=== PATIENT | female | born 1990 | race American Indian/Alaskan Native ===

== ENCOUNTER 2018-08-13 05:52 | Day surgery (SDC) | payer MEDICAID ==
[2018-08-12 16:53] LABS: BASOPHILS # (AUTO) 0.1 X10'3 (0-0.2); BASOPHILS % (AUTO) 0.5 % (0-1); EOSINOPHILS # (AUTO) 0.1 X10'3 (0-0.9); EOSINOPHILS % (AUTO) 1.2 % (0-6); LYMPHOCYTES # (AUTO) 2.3 X10'3 (1.1-4.8); LYMPHOCYTES % (AUTO) 21.7 % (21-51); MEAN CORPUSCULAR HEMOGLOBIN 28.6 PG (27.0-31.0); MEAN CORPUSCULAR HGB CONC 34.1 % (33.0-36.5); MEAN CORPUSCULAR VOLUME 83.9 FL (78-98); MEAN PLATELET VOLUME 7.5 FL (7.4-10.4); MONOCYTES # (AUTO) 0.6 X10'3 (0-0.9); MONOCYTES % (AUTO) 5.4 % (2-12); NEUTROPHILS # (AUTO) 7.7 X10'3 (1.8-7.7); NEUTROPHILS % (AUTO) 71.2 % (42-75); PRE OP HEMATOCRIT 42.8 % (35.0-45.0); PRE OP HEMOGLOBIN 14.6 g/dL (12.0-16.0); PRE OP PLATELET COUNT 345 X10'3 (140-440); RED CELL DISTRIBUTION WIDTH 13.1 % (11.5-14.5)
[2018-08-12 16:58] LABS: HCG SERUM QL NEGATIVE
[2018-08-12 17:04] LABS: ALBUMIN 3.9 G/DL (3.4-5.0); ALBUMIN/GLOBULIN RATIO 1.1 (1.1-1.5); ALKALINE PHOSPHATASE 93 IU/L (46-116); BLOOD UREA NITROGEN 13 MG/DL (7-18); BUN/CREATININE RATIO 14.8 (6.6-38.0); CALCIUM 9.4 MG/DL (8.5-10.1); CHLORIDE 105 MMOL/L (99-107); CREATININE 0.88 MG/DL (0.40-0.90); PRE OP ALT 30 U/L (30-65); PRE OP ANION GAP 8 (8-16); PRE OP AST 18 U/L (10-37); PRE OP BILIRUB, TOTAL 0.2 MG/DL (0.0-1.0); PRE OP GLUCOSE 81 MG/DL (70-104); PRE OP POTASSIUM 3.9 MMOL/L (3.4-5.1); PRE OP SODIUM 142 MMOL/L (135-145); TOTAL CARBON DIOXIDE 28.8 MMOL/L (24-32); TOTAL PROTEIN 7.6 G/DL (6.4-8.2); eGFR 78 ML/MIN
[2018-08-12 17:05] LABS: CLARITY,URINE CLEAR (Clear); COLOR,URINE YELLOW (Yellow); GLUCOSE, URINE NEGATIVE (Neg); KETONES,URINE NEGATIVE (Neg); LEUKOCYTE ESTERASE ,URINE NEGATIVE (Neg); NITRITES, URINE NEGATIVE (Neg); OCCULT BLOOD,URINE SMALL (Neg); PROTEIN,URINE NEGATIVE (Neg); UROBILINOGEN,URINE 0.2 E.U/dL (0.2-1.0)
[2018-08-12 17:15] LABS: UA COLLECTION TYPE CLN CATCH MIDSTREAM
[2018-08-12 17:17] LABS: MUCUS STRANDS FEW /LPF (Neg); SQUAMOUS EPITHELIAL CELL,UR MANY /LPF (FEW)
[2018-08-12 17:18] LABS: RBC,URINE 0-2 /HPF (0-2); WBC,URINE 0-4 /HPF (0-4)
[2018-08-12 17:19] LABS: BACTERIA,URINE NONE SEEN /HPF (Neg)
[~2018-08-13] VITALS: Ht 175.3 cm; Wt 163.7 kg
[2018-08-13] VITALS (9 sets, daily range): BP systolic 130–149; BP diastolic 62–98
[~2018-08-13 05:52] MED LIST: FLUT16SP10 BOTHNARES; LEVA15HF4 INH; MULT-933 PO; albuterol 2.5 MG/3 ML nebule NEB ONE; ceFAZolin inj. 3,000 MG in normal saline 100ml IV soln 100 ML IV ONE; famotidine 20mg tablet PO ONE; ringers solution, lacted 1,000 ML IV SCH
[2018-08-13] MEDS ORDERED: ALBU18HF2 INH (06:28)
[2018-08-13] MEDS ORDERED: povidone-iodine 10% topical ointment 28.4gm TP ONE (06:55)
[2018-08-13] MEDS ORDERED: BUPIVAcaine/PF 2.5mg/ml (0.25%) 10ml vial ONE (06:55)
[2018-08-13] MEDS ORDERED: methylene blue (5mg/ml) 50mg/10ml ampul IV ONE (06:55)
[2018-08-13] MEDS ORDERED: sevoflurane 250ml liquid IH ONE (08:20)
[2018-08-13] MEDS ORDERED: LIDOcaine 1%/PF 5ML 10 MG/ML VIAL ONE (08:20)
[2018-08-13] MEDS ORDERED: propofol 10mg/ml 20ml vial IV ONE (08:20)
[2018-08-13] MEDS ORDERED: glycopyrrolate 0.2mg/ml inj ONE (08:20)
[2018-08-13] MEDS ORDERED: labetalol 20mg/4ml (5mg/ml) syringe IV ONE (08:20)
[2018-08-13] MEDS ORDERED: neostigmine methylsulfate 1 MG/ML 10ml vial ONE (08:20)
[2018-08-13] MEDS ORDERED: MIDAZolam 5mg/5ml vial ONE (08:28)
[2018-08-13] MEDS ORDERED: fentaNYL/PF 50MCG/1 ML 2ML syringe ONE (08:28)
[2018-08-13] MEDS ORDERED: propofol inj 20 ML IV ONE (08:28)
[2018-08-13] MEDS ORDERED: rocuronium 10mg/ml inj IV ONE (08:29)
[2018-08-13] MEDS ORDERED: ondansetron/PF 4mg/2ml inj ONE (08:53)
[2018-08-13] MEDS ORDERED: albuterol 60 PUFF/8GM Inhaler IH ONE (08:55)
[2018-08-13] MEDS ORDERED: ketorolac trometh. 30mg/ml inj. ONE (08:55)
[2018-08-13] MEDS ORDERED: ringers solution, lacted 1,000 ML IV SCH (09:07)
[2018-08-13] MEDS ORDERED: meperidine/PF 25mg/ml syringe IV PRN ×3 (09:10)
[2018-08-13] MEDS ORDERED: morphine 4 MG/ML inj SYRINge IV PRN ×2 (09:10)
[2018-08-13] MEDS ORDERED: ondansetron/PF 4mg/2ml inj IV PRN (09:10)
[2018-08-13] MEDS ORDERED: proCHLORperazine 10 MG/2 ml inj IV PRN (09:10)
[2018-08-13] MEDS ORDERED: HYDROcodone/acetaminophen 10/325mg tab PO ONE (10:40)
[2018-08-13] MEDS ORDERED: acetaminophen 1,000mg/100ml IV 100 ML IV SCH (14:00)
== END 2018-08-13 11:00 | disposition home or self-care (01) ==
LOC: PAS 05:52
PROVIDERS: ATTEND Surgery
DX: L05.91 Pilonidal cyst without abscess (principal); F17.210 Nicotine dependence, cigarettes, uncomplicated; J45.998 Other asthma; E66.01 Morbid (severe) obesity due to excess calories; Z68.43 Body mass index [BMI] 50.0-59.9, adult; Z87.11 Personal history of peptic ulcer disease; Z87.442 Personal history of urinary calculi; Z90.49 Acquired absence of other specified parts of digestive tract; Z98.890 Other specified postprocedural states; Z79.899 Other long term (current) drug therapy; Z88.8 Allergy status to other drugs, medicaments and biological substances
CPT/HCPCS: 11771; 36415; 80053; 81001; 84703; 85025; A6266; A6449; J0690; J2001; J2250; J2405; J2704; J2710; J3010; J3490; J7030; J7120; A7000; J1885

== ENCOUNTER 2018-08-16 09:30 | Outpatient (CLI) | payer MEDICAID ==
[~2018-08-16 09:30] MED LIST changes: +ALBU18HF2 INH; -LEVA15HF4 INH; -albuterol 2.5 MG/3 ML nebule NEB ONE; -ceFAZolin inj. 3,000 MG in normal saline 100ml IV soln 100 ML IV ONE; -famotidine 20mg tablet PO ONE; -ringers solution, lacted 1,000 ML IV SCH
[2018-08-16] MEDS ORDERED: LIDOcaine/PRILOcaine 5gm cream TP ONE (10:59)
[2018-08-16] MEDS ORDERED: HYDR-569 PO (15:43)
== END 2018-08-16 11:30 | disposition home or self-care (01) ==
LOC: EDSTATUS 09:30 → WOUND CARE 09:30
PROVIDERS: ATTEND Surgery
DX: T81.89XD Other complications of procedures, not elsewhere classified, subsequent encounter (principal); L98.492 Non-pressure chronic ulcer of skin of other sites with fat layer exposed; E66.01 Morbid (severe) obesity due to excess calories; J45.998 Other asthma; F17.210 Nicotine dependence, cigarettes, uncomplicated; F12.10 Cannabis abuse, uncomplicated; Z90.49 Acquired absence of other specified parts of digestive tract; Z68.43 Body mass index [BMI] 50.0-59.9, adult; Z87.442 Personal history of urinary calculi; Z79.899 Other long term (current) drug therapy
CPT/HCPCS: 99214; A6266

== ENCOUNTER 2018-08-20 08:54 | Outpatient (CLI) | payer MEDICAID ==
[~2018-08-20 08:54] MED LIST changes: +HYDR-4383 PO
== END 2018-08-20 10:45 | disposition home or self-care (01) ==
LOC: WOUND CARE 08:54 → EDSTATUS 09:00 → WOUND CARE 10:45
PROVIDERS: ATTEND Surgery
DX: T81.89XD Other complications of procedures, not elsewhere classified, subsequent encounter (principal); L98.492 Non-pressure chronic ulcer of skin of other sites with fat layer exposed; E66.01 Morbid (severe) obesity due to excess calories; J45.998 Other asthma; F17.210 Nicotine dependence, cigarettes, uncomplicated; F12.10 Cannabis abuse, uncomplicated; Z90.49 Acquired absence of other specified parts of digestive tract; Z68.43 Body mass index [BMI] 50.0-59.9, adult; Z87.442 Personal history of urinary calculi; Z79.899 Other long term (current) drug therapy
CPT/HCPCS: 99215; A6266

== ENCOUNTER 2018-08-23 08:26 | Outpatient (CLI) | payer MEDICAID ==
[2018-08-23] MEDS ORDERED: LIDOcaine/PRILOcaine 5gm cream TP ONE (09:28)
== END 2018-08-23 09:50 | disposition home or self-care (01) ==
LOC: WOUND CARE 08:26 → EDSTATUS 08:30 → WOUND CARE 09:50
PROVIDERS: ATTEND Surgery
DX: T81.89XD Other complications of procedures, not elsewhere classified, subsequent encounter (principal); L98.492 Non-pressure chronic ulcer of skin of other sites with fat layer exposed; E66.01 Morbid (severe) obesity due to excess calories; J45.998 Other asthma; F17.210 Nicotine dependence, cigarettes, uncomplicated; F12.10 Cannabis abuse, uncomplicated; Z90.49 Acquired absence of other specified parts of digestive tract; Z68.43 Body mass index [BMI] 50.0-59.9, adult; Z87.442 Personal history of urinary calculi; Z79.899 Other long term (current) drug therapy
CPT/HCPCS: 99211; A6266

== ENCOUNTER 2018-08-27 08:00 | Outpatient (CLI) | payer MEDICAID ==
[2018-08-27] MEDS ORDERED: LIDOcaine/PRILOcaine 5gm cream TP ONE (08:53)
== END 2018-08-27 10:22 | disposition home or self-care (01) ==
LOC: WOUND CARE 08:00 → EDSTATUS 08:30 → WOUND CARE 10:22
PROVIDERS: ATTEND Surgery
DX: T81.89XD Other complications of procedures, not elsewhere classified, subsequent encounter (principal); L98.492 Non-pressure chronic ulcer of skin of other sites with fat layer exposed; E66.01 Morbid (severe) obesity due to excess calories; J45.998 Other asthma; F17.210 Nicotine dependence, cigarettes, uncomplicated; F12.10 Cannabis abuse, uncomplicated; Z90.49 Acquired absence of other specified parts of digestive tract; Z68.43 Body mass index [BMI] 50.0-59.9, adult; Z87.442 Personal history of urinary calculi; Z79.899 Other long term (current) drug therapy
CPT/HCPCS: 17250; A6266

== ENCOUNTER 2018-08-30 08:24 | Outpatient (CLI) | payer MEDICAID ==
[2018-08-30] MEDS ORDERED: LIDOcaine/PRILOcaine 5gm cream TP ONE (08:44)
== END 2018-08-30 09:07 | disposition home or self-care (01) ==
LOC: WOUND CARE 08:24 → EDSTATUS 08:30 → WOUND CARE 09:07
PROVIDERS: ATTEND Surgery
DX: T81.89XD Other complications of procedures, not elsewhere classified, subsequent encounter (principal); L98.492 Non-pressure chronic ulcer of skin of other sites with fat layer exposed; E66.01 Morbid (severe) obesity due to excess calories; J45.998 Other asthma; F17.210 Nicotine dependence, cigarettes, uncomplicated; F12.10 Cannabis abuse, uncomplicated; Z90.49 Acquired absence of other specified parts of digestive tract; Z68.43 Body mass index [BMI] 50.0-59.9, adult; Z87.442 Personal history of urinary calculi; Z79.899 Other long term (current) drug therapy
CPT/HCPCS: 99211; A6266

== ENCOUNTER 2018-09-03 08:33 | Day surgery (SDC) | payer MEDICAID ==
[2018-09-03] MEDS ORDERED: NYST30CR2 TP (12:40)
== END 2018-09-03 10:47 | disposition home or self-care (01) ==
LOC: WOUND CARE 08:33
PROVIDERS: ATTEND Surgery
DX: T81.89XD Other complications of procedures, not elsewhere classified, subsequent encounter (principal); L98.492 Non-pressure chronic ulcer of skin of other sites with fat layer exposed; E66.01 Morbid (severe) obesity due to excess calories; J45.998 Other asthma; F17.210 Nicotine dependence, cigarettes, uncomplicated; F12.10 Cannabis abuse, uncomplicated; Z90.49 Acquired absence of other specified parts of digestive tract; Z68.43 Body mass index [BMI] 50.0-59.9, adult; Z87.442 Personal history of urinary calculi; Z79.899 Other long term (current) drug therapy; Y83.8 Other surgical procedures as the cause of abnormal reaction of the patient, or of later complication, without mention of misadventure at the time of the procedure
CPT/HCPCS: 97597; A6266

== ENCOUNTER 2018-09-06 08:34 | Outpatient (CLI) | payer MEDICAID ==
[~2018-09-06 08:34] MED LIST changes: +NYST30CR2 TP
[2018-09-06] MEDS ORDERED: LIDOcaine/PRILOcaine 5gm cream TP ONE (08:59)
== END 2018-09-06 09:15 | disposition home or self-care (01) ==
LOC: WOUND CARE 08:34
PROVIDERS: ATTEND Surgery
DX: T81.89XD Other complications of procedures, not elsewhere classified, subsequent encounter (principal); L98.492 Non-pressure chronic ulcer of skin of other sites with fat layer exposed; E66.01 Morbid (severe) obesity due to excess calories; J45.998 Other asthma; F17.210 Nicotine dependence, cigarettes, uncomplicated; F12.10 Cannabis abuse, uncomplicated; Z90.49 Acquired absence of other specified parts of digestive tract; Z68.43 Body mass index [BMI] 50.0-59.9, adult; Z87.442 Personal history of urinary calculi; Z79.899 Other long term (current) drug therapy; Y83.8 Other surgical procedures as the cause of abnormal reaction of the patient, or of later complication, without mention of misadventure at the time of the procedure
CPT/HCPCS: 99211; A6266; 99215

== ENCOUNTER 2018-09-10 08:35 | Day surgery (SDC) | payer MEDICAID | END 2018-09-10 10:40 | disposition home or self-care (01) | LOC: WOUND CARE 08:35 | PROVIDERS: ATTEND Surgery | DX: T81.89XD Other complications of procedures, not elsewhere classified, subsequent encounter (principal); L98.492 Non-pressure chronic ulcer of skin of other sites with fat layer exposed; E66.01 Morbid (severe) obesity due to excess calories; J45.998 Other asthma; F17.210 Nicotine dependence, cigarettes, uncomplicated; F12.10 Cannabis abuse, uncomplicated; Z90.49 Acquired absence of other specified parts of digestive tract; Z68.43 Body mass index [BMI] 50.0-59.9, adult; Z87.442 Personal history of urinary calculi; Z79.899 Other long term (current) drug therapy; Y83.8 Other surgical procedures as the cause of abnormal reaction of the patient, or of later complication, without mention of misadventure at the time of the procedure | CPT/HCPCS: 17250; A6266 ==

== ENCOUNTER 2018-09-13 08:20 | Outpatient (CLI) | payer MEDICAID ==
[2018-09-13] MEDS ORDERED: LIDOcaine/PRILOcaine 5gm cream TP ONE (08:57)
== END 2018-09-13 09:12 | disposition home or self-care (01) ==
LOC: WOUND CARE 08:20 → EDSTATUS 08:30 → WOUND CARE 09:12
PROVIDERS: ATTEND Surgery
DX: T81.89XD Other complications of procedures, not elsewhere classified, subsequent encounter (principal); L98.492 Non-pressure chronic ulcer of skin of other sites with fat layer exposed; E66.01 Morbid (severe) obesity due to excess calories; J45.998 Other asthma; F17.210 Nicotine dependence, cigarettes, uncomplicated; F12.10 Cannabis abuse, uncomplicated; Z90.49 Acquired absence of other specified parts of digestive tract; Z68.43 Body mass index [BMI] 50.0-59.9, adult; Z87.442 Personal history of urinary calculi; Z79.899 Other long term (current) drug therapy; Y83.8 Other surgical procedures as the cause of abnormal reaction of the patient, or of later complication, without mention of misadventure at the time of the procedure
CPT/HCPCS: 99211; A6266

== ENCOUNTER 2018-09-18 08:35 | Day surgery (SDC) | payer MEDICAID | END 2018-09-18 10:25 | disposition home or self-care (01) | LOC: WOUND CARE 08:35 | PROVIDERS: ATTEND Surgery | DX: T81.89XD Other complications of procedures, not elsewhere classified, subsequent encounter (principal); L98.492 Non-pressure chronic ulcer of skin of other sites with fat layer exposed; E66.01 Morbid (severe) obesity due to excess calories; J45.998 Other asthma; F17.210 Nicotine dependence, cigarettes, uncomplicated; F12.10 Cannabis abuse, uncomplicated; Z90.49 Acquired absence of other specified parts of digestive tract; Z68.43 Body mass index [BMI] 50.0-59.9, adult; Z87.442 Personal history of urinary calculi; Z79.899 Other long term (current) drug therapy; Y83.8 Other surgical procedures as the cause of abnormal reaction of the patient, or of later complication, without mention of misadventure at the time of the procedure | CPT/HCPCS: 17250; A6266 ==

== ENCOUNTER 2018-09-20 08:26 | Outpatient (CLI) | payer MEDICAID ==
[2018-09-20] MEDS ORDERED: LIDOcaine/PRILOcaine 5gm cream TP ONE (08:47)
== END 2018-09-20 09:05 | disposition home or self-care (01) ==
LOC: WOUND CARE 08:26 → EDSTATUS 08:30 → WOUND CARE 09:05
PROVIDERS: ATTEND Surgery
DX: T81.89XD Other complications of procedures, not elsewhere classified, subsequent encounter (principal); L98.492 Non-pressure chronic ulcer of skin of other sites with fat layer exposed; E66.01 Morbid (severe) obesity due to excess calories; J45.998 Other asthma; F17.210 Nicotine dependence, cigarettes, uncomplicated; F12.10 Cannabis abuse, uncomplicated; Z90.49 Acquired absence of other specified parts of digestive tract; Z68.43 Body mass index [BMI] 50.0-59.9, adult; Z87.442 Personal history of urinary calculi; Z79.899 Other long term (current) drug therapy; Y83.8 Other surgical procedures as the cause of abnormal reaction of the patient, or of later complication, without mention of misadventure at the time of the procedure
CPT/HCPCS: 99211; A6266

== ENCOUNTER 2018-09-24 08:29 | Day surgery (SDC) | payer MEDICAID ==
[2018-09-24] MEDS ORDERED: LIDOcaine/PRILOcaine 5gm cream TP ONE (10:03)
== END 2018-09-24 10:23 | disposition home or self-care (01) ==
LOC: WOUND CARE 08:29
PROVIDERS: ATTEND Surgery
DX: T81.89XD Other complications of procedures, not elsewhere classified, subsequent encounter (principal); L98.492 Non-pressure chronic ulcer of skin of other sites with fat layer exposed; E66.01 Morbid (severe) obesity due to excess calories; J45.998 Other asthma; F17.210 Nicotine dependence, cigarettes, uncomplicated; F12.10 Cannabis abuse, uncomplicated; Z90.49 Acquired absence of other specified parts of digestive tract; Z68.43 Body mass index [BMI] 50.0-59.9, adult; Z87.442 Personal history of urinary calculi; Z79.899 Other long term (current) drug therapy; Y83.8 Other surgical procedures as the cause of abnormal reaction of the patient, or of later complication, without mention of misadventure at the time of the procedure
CPT/HCPCS: 17250; A6021

== ENCOUNTER 2018-09-27 08:31 | Outpatient (CLI) | payer MEDICAID | END 2018-09-27 09:20 | disposition home or self-care (01) | LOC: WOUND CARE 08:31 | PROVIDERS: ATTEND Surgery | DX: T81.89XD Other complications of procedures, not elsewhere classified, subsequent encounter (principal); L98.492 Non-pressure chronic ulcer of skin of other sites with fat layer exposed; E66.01 Morbid (severe) obesity due to excess calories; J45.998 Other asthma; F17.210 Nicotine dependence, cigarettes, uncomplicated; F12.10 Cannabis abuse, uncomplicated; Z90.49 Acquired absence of other specified parts of digestive tract; Z68.43 Body mass index [BMI] 50.0-59.9, adult; Z87.442 Personal history of urinary calculi; Z79.899 Other long term (current) drug therapy; Y83.8 Other surgical procedures as the cause of abnormal reaction of the patient, or of later complication, without mention of misadventure at the time of the procedure | CPT/HCPCS: 99211; A6021 ==

== ENCOUNTER 2018-10-01 08:30 | Day surgery (SDC) | payer MEDICAID | END 2018-10-01 10:14 | disposition home or self-care (01) | LOC: WOUND CARE 08:30 | PROVIDERS: ATTEND Surgery | DX: T81.89XD Other complications of procedures, not elsewhere classified, subsequent encounter (principal); L98.492 Non-pressure chronic ulcer of skin of other sites with fat layer exposed; E66.01 Morbid (severe) obesity due to excess calories; J45.998 Other asthma; F17.210 Nicotine dependence, cigarettes, uncomplicated; F12.10 Cannabis abuse, uncomplicated; Z90.49 Acquired absence of other specified parts of digestive tract; Z68.43 Body mass index [BMI] 50.0-59.9, adult; Z87.442 Personal history of urinary calculi; Z79.899 Other long term (current) drug therapy; Y83.8 Other surgical procedures as the cause of abnormal reaction of the patient, or of later complication, without mention of misadventure at the time of the procedure | CPT/HCPCS: 17250; A6021 ==

== ENCOUNTER 2018-10-18 08:29 | Day surgery (SDC) | payer MEDICAID | END 2018-10-18 09:58 | disposition home or self-care (01) | LOC: WOUND CARE 08:29 | PROVIDERS: ATTEND Surgery | DX: T81.89XD Other complications of procedures, not elsewhere classified, subsequent encounter (principal); L98.492 Non-pressure chronic ulcer of skin of other sites with fat layer exposed; E66.01 Morbid (severe) obesity due to excess calories; J45.998 Other asthma; F17.210 Nicotine dependence, cigarettes, uncomplicated; F12.10 Cannabis abuse, uncomplicated; Z90.49 Acquired absence of other specified parts of digestive tract; Z68.43 Body mass index [BMI] 50.0-59.9, adult; Z87.442 Personal history of urinary calculi; Z79.899 Other long term (current) drug therapy; Y83.8 Other surgical procedures as the cause of abnormal reaction of the patient, or of later complication, without mention of misadventure at the time of the procedure | CPT/HCPCS: 17250; 97597; A6021 ==

== ENCOUNTER 2018-10-25 08:25 | Day surgery (SDC) | payer MEDICAID | END 2018-10-25 09:41 | disposition home or self-care (01) | LOC: WOUND CARE 08:25 | PROVIDERS: ATTEND Surgery | DX: T81.89XD Other complications of procedures, not elsewhere classified, subsequent encounter (principal); L98.492 Non-pressure chronic ulcer of skin of other sites with fat layer exposed; E66.01 Morbid (severe) obesity due to excess calories; J45.998 Other asthma; F17.210 Nicotine dependence, cigarettes, uncomplicated; F12.10 Cannabis abuse, uncomplicated; Z90.49 Acquired absence of other specified parts of digestive tract; Z68.43 Body mass index [BMI] 50.0-59.9, adult; Z87.442 Personal history of urinary calculi; Z79.899 Other long term (current) drug therapy; Y83.8 Other surgical procedures as the cause of abnormal reaction of the patient, or of later complication, without mention of misadventure at the time of the procedure | CPT/HCPCS: 17250; 97597 ==

== ENCOUNTER 2018-12-04 08:54 | Day surgery (SDC) | payer MEDICAID ==
--- NOTE | 2018-12-04 10:15 | NUR ---
Patient ambulated independently from [facility] accompanied by her mother and was admitted to outpatient wound care for physician visit with Joel Talbert MD. Dressing removed, wound cleansed and lidocaine applied per order. Patient assessed for changes in conditions, medications and medical history. 1005 - Dr. Talbert at bedside accompanied by RN. Wound assessed, time out performed by MD/RN. Wound debrided as detailed in the physician progress/procedure note. Plan of care discussed with patient. Dressings placed per MD orders. Patient instructed on the signs and symptoms of infection and to call the [facility] if any occur or to go to the ED if we are closed: Increased pain in wound Increase in drainage from the wound Redness in the skin surrounding the wound Bleeding from the wound Temperature of 101 or greater Patient instructed that the weight of their body puts a large amount of pressure on their wounds. This pressure keeps the new tissue from growing and inhibits new blood vessels from forming. Explained that, if they continue to bear weight on a body part that has a wound, the time it takes to heal the wound increases, the wound may get worse or the wound may not heal at all. Patient verbalized understanding of all discharge instructions and plan of care and ambulated independently out to [facility] accompanied by her mother and is in stable condition with no sign or symptom of distress at time of discharge.
== END 2018-12-04 10:11 | disposition home or self-care (01) ==
LOC: WOUND CARE 08:54
PROVIDERS: ATTEND Surgery
DX: T81.89XD Other complications of procedures, not elsewhere classified, subsequent encounter (principal); L98.492 Non-pressure chronic ulcer of skin of other sites with fat layer exposed; E66.01 Morbid (severe) obesity due to excess calories; J45.998 Other asthma; F17.210 Nicotine dependence, cigarettes, uncomplicated; F12.10 Cannabis abuse, uncomplicated; Z90.49 Acquired absence of other specified parts of digestive tract; Z68.43 Body mass index [BMI] 50.0-59.9, adult; Z87.442 Personal history of urinary calculi; Z79.899 Other long term (current) drug therapy; Y83.8 Other surgical procedures as the cause of abnormal reaction of the patient, or of later complication, without mention of misadventure at the time of the procedure
CPT/HCPCS: 17250; 97597; A6021

== ENCOUNTER 2019-08-11 18:06 | Emergency (ER) | payer MEDICAID ==
[~2019-08-11] VITALS: Ht 175.3 cm; Wt 168.2 kg
[2019-08-11 18:36] LABS: BASOPHILS # (AUTO) 0.1 X10'3 (0-0.2); BASOPHILS % (AUTO) 0.9 % (0-1); EOSINOPHILS # (AUTO) 0.1 X10'3 (0-0.9); EOSINOPHILS % (AUTO) 1.1 % (0-6); HEMATOCRIT 41.6 % (35.0-45.0); HEMOGLOBIN 13.8 g/dl (12.0-16.0); LYMPHOCYTES # (AUTO) 2.8 X10'3 (1.1-4.8); LYMPHOCYTES % (AUTO) 23.9 % (21-51); MEAN CORPUSCULAR HEMOGLOBIN 27.9 PG (27.0-31.0); MEAN CORPUSCULAR HGB CONC 33.2 g/dL (33.0-36.5); MEAN CORPUSCULAR VOLUME 83.9 FL (78-98); MEAN PLATELET VOLUME 7.2 FL (7.4-10.4); MONOCYTES # (AUTO) 0.8 X10'3 (0-0.9); NEUTROPHILS # (AUTO) 7.9 X10'3 (1.8-7.7); NEUTROPHILS % (AUTO) 67.1 % (42-75); PLATELET COUNT 358 X10'3 (140-440); RED BLOOD COUNT 4.96 X10'6 (4.20-5.60); RED CELL DISTRIBUTION WIDTH 14.2 % (11.5-14.5); WHITE BLOOD COUNT 11.9 X10'3 (4.5-11.0)
[2019-08-11] MEDS ORDERED: HYDROcodone/acetaminophen 5mg/325mg tablet PO ONE (18:40)
[2019-08-11 18:48] LABS: PARTIAL THROMBOPLASTIN TIME 29 SECONDS (22-32)
[2019-08-11 18:52] LABS: ALANINE AMINOTRANSFERASE 33 U/L (12-78); ALBUMIN 3.8 G/DL (3.4-5.0); ALKALINE PHOSPHATASE 95 IU/L (46-116); ANION GAP 9 (8-16); ASPARTATE AMINO TRANSFERASE 19 U/L (10-37); BILIRUBIN,TOTAL 0.2 MG/DL (0.1-1.0); BLOOD UREA NITROGEN 12 MG/DL (7-18); BUN/CREATININE RATIO 11.3 (6.6-38.0); CALCIUM 9.4 MG/DL (8.5-10.1); CHLORIDE 105 MMOL/L (99-107); CREATININE 1.06 MG/DL (0.40-0.90); GLUCOSE 94 MG/DL (70-104); POTASSIUM 3.8 MMOL/L (3.5-5.1); SODIUM 142 MMOL/L (135-145); TOTAL CARBON DIOXIDE 27.9 MMOL/L (24-32); TOTAL PROTEIN 7.8 G/DL (6.4-8.2); eGFR 62 ML/MIN
[2019-08-11 18:56] LABS: D-DIMER < 0.19 MG/L FEU (0-0.50)
[2019-08-11 19:56] VITALS: BP 140/78
== END 2019-08-11 20:14 | disposition home or self-care (01) ==
LOC: ER 18:07
DX: R07.81 Pleurodynia (principal); R61 Generalized hyperhidrosis; R06.02 Shortness of breath; F17.200 Nicotine dependence, unspecified, uncomplicated; Z87.442 Personal history of urinary calculi; Z90.89 Acquired absence of other organs; Z56.0 Unemployment, unspecified; Z88.8 Allergy status to other drugs, medicaments and biological substances; Z79.899 Other long term (current) drug therapy
CPT/HCPCS: 36415; 71045; 80053; 84484; 85025; 85379; 85610; 85730; 93005; 99284

== ENCOUNTER 2019-10-21 15:30 | Inpatient (IN) | payer MEDICAID ==
[~2019-10-21] VITALS: Ht 175.3 cm; Wt 159.1 kg
[2019-10-21 16:12] LABS: BASOPHILS # (AUTO) 0.1 X10'3 (0-0.2); BASOPHILS % (AUTO) 0.5 % (0-1); EOSINOPHILS % (AUTO) 0.2 % (0-6); HEMOGLOBIN 13.4 g/dl (12.0-16.0); LYMPHOCYTES % (AUTO) 7.9 % (21-51); MEAN CORPUSCULAR HGB CONC 33.6 g/dL (33.0-36.5); MEAN CORPUSCULAR VOLUME 83.5 FL (78-98); MEAN PLATELET VOLUME 7.7 FL (7.4-10.4); MONOCYTES # (AUTO) 1.1 X10'3 (0-0.9); MONOCYTES % (AUTO) 8.9 % (2-12); NEUTROPHILS # (AUTO) 10.7 X10'3 (1.8-7.7); NEUTROPHILS % (AUTO) 82.5 % (42-75); PLATELET COUNT 211 X10'3 (140-440); RED BLOOD COUNT 4.79 X10'6 (4.20-5.60); RED CELL DISTRIBUTION WIDTH 15.7 % (11.5-14.5); WHITE BLOOD COUNT 12.9 X10'3 (4.5-11.0)
[2019-10-21 16:20] LABS: ALANINE AMINOTRANSFERASE 40 U/L (12-78); ALBUMIN 3.4 G/DL (3.4-5.0); ALBUMIN/GLOBULIN RATIO 0.7 (1.1-1.5); ALKALINE PHOSPHATASE 94 IU/L (46-116); ANION GAP 12 (8-16); ASPARTATE AMINO TRANSFERASE 33 U/L (10-37); BLOOD UREA NITROGEN 9 MG/DL (7-18); BUN/CREATININE RATIO 8.2 (6.6-38.0); CALCIUM 9.1 MG/DL (8.5-10.1); CHLORIDE 101 MMOL/L (99-107); GLUCOSE 102 MG/DL (70-104); LIPASE < 50 U/L (73-393); POTASSIUM 3.4 MMOL/L (3.5-5.1); SODIUM 138 MMOL/L (135-145); TOTAL CARBON DIOXIDE 25.4 MMOL/L (24-32); eGFR 60 ML/MIN
[2019-10-21] MEDS ORDERED: normal saline 1000ML IV soln IVB ONE (16:25)
[2019-10-21] MEDS ORDERED: acetaminophen 325mg tablet PO ONE (16:25)
[2019-10-21] MEDS ORDERED: ondansetron 4mg rapidly disintigrating tab PO ONE (16:25)
[2019-10-21 16:37] LABS: PLATELET ESTIMATE NORMAL; TOTAL CELLS COUNTED 100
[2019-10-21 16:38] LABS: ANISOCYTOSIS FEW; TOXIC GRANULATION 1+; TOXIC VACUOLATION FEW
[2019-10-21 17:23] LABS: HIV ANTIBODY 1&2 RAPID NON-REACTIVE (Neg)
[2019-10-21 17:32] LABS: URINE HCG NEGATIVE (NEG)
[2019-10-21 17:33] LABS: CLARITY,URINE CLOUDY (Clear); COLOR,URINE YELLOW (Yellow); GLUCOSE, URINE NEGATIVE (Neg); KETONES,URINE 40 mg/dl (Neg); LEUKOCYTE ESTERASE ,URINE LARGE (Neg); NITRITES, URINE POSITIVE (Neg); OCCULT BLOOD,URINE LARGE (Neg); PROTEIN,URINE 100 mg/dl (Neg)
[2019-10-21 17:34] LABS: UA COLLECTION TYPE CLN CATCH MIDSTREAM
[2019-10-21] MEDS ORDERED: CefTRIAXone/D5W-Rocephin 1gm 50 ML IV ONE (17:55)
[2019-10-21 18:06] LABS: SQUAMOUS EPITHELIAL CELL,UR MODERATE /LPF (FEW)
[2019-10-21 18:07] LABS: HYALINE CASTS 0-3 /LPF (NEGATIVE)
[2019-10-21 18:09] LABS: BACTERIA,URINE 4+ /HPF (Neg); WBC,URINE 50-100 /HPF (0-4)
[2019-10-21 18:11] LABS: MUCUS STRANDS FEW /LPF (Neg); TRANSITIONAL EPI CELLS,URINE FEW /HPF
[2019-10-21 18:12] LABS: RENAL CELLS, URINE FEW /HPF
[2019-10-21 18:14] LABS: RBC,URINE 50-100 /HPF (0-2)
[2019-10-21] MEDS ORDERED: VARE0.5T PO (18:41)
[2019-10-21] MEDS ORDERED: KEN0.1O TP (18:41)
[2019-10-21] MEDS ORDERED: ondansetron/PF 4mg/2ml inj IV PRN (20:40)
[2019-10-21] MEDS ORDERED: mag hydrox/Alum hydrox/simeth 30ml oral suspension PO PRN (20:40)
[2019-10-21] MEDS ORDERED: magnesium hydroxide 30ml (MOM) UD suspension PO PRN (20:40)
[2019-10-21] MEDS ORDERED: albuterol 2.5 MG/3 ML nebule NEB PRN (20:45)
[2019-10-21] MEDS: acetaminophen 325mg tablet PO PRN (21:02)
--- NOTE | 2019-10-21 21:03 | NUR ---
Received patient report from Shae LOZA. Will assume care.
--- NOTE | 2019-10-21 21:12 | NUR ---
received from er via w/c. pt alert and oriented. oriented to room and routine. Addendum: 10/21/19 at 2127 by Bandar Garcia RN Amended: Links added.
[2019-10-21 21:30] VITALS: BP 143/77
[2019-10-21] MEDS: normal saline 1000ml 1,000 ML IV SCH (21:39)
[2019-10-21] MEDS: HYDROcodone/acetaminophen 5mg/325mg tablet PO PRN (22:29)
[2019-10-22] VITALS: BP 119/64
--- NOTE | 2019-10-22 03:00 | NUR ---
Patient's flu came back negative. Patient removed from isolation.
[2019-10-22] MEDS: normal saline 1000ml 1,000 ML IV SCH ×2 (05:11→17:27)
--- NOTE | 2019-10-22 06:30 | NUR ---
Patient in room [facility]. I have received report from Marcelle LOZA and had the opportunity to ask questions and assume patient care.
--- NOTE | 2019-10-22 06:41 | NUR ---
Problems reprioritized. Patient report given, questions answered & plan of care reviewed with Garrison RN.
[2019-10-22 07:00] VITALS: BP 144/99
[2019-10-22 07:28] LABS: BASOPHILS % (AUTO) 0.4 % (0-1); EOSINOPHILS % (AUTO) 0.2 % (0-6); HEMATOCRIT 35.7 % (35.0-45.0); HEMOGLOBIN 11.7 g/dl (12.0-16.0); LYMPHOCYTES # (AUTO) 1.1 X10'3 (1.1-4.8); LYMPHOCYTES % (AUTO) 10.8 % (21-51); MEAN CORPUSCULAR HEMOGLOBIN 27.8 PG (27.0-31.0); MEAN CORPUSCULAR HGB CONC 32.9 g/dL (33.0-36.5); MEAN CORPUSCULAR VOLUME 84.4 FL (78-98); MEAN PLATELET VOLUME 7.7 FL (7.4-10.4); MONOCYTES # (AUTO) 1.1 X10'3 (0-0.9); MONOCYTES % (AUTO) 10.8 % (2-12); NEUTROPHILS # (AUTO) 7.9 X10'3 (1.8-7.7); NEUTROPHILS % (AUTO) 77.8 % (42-75); PLATELET COUNT 182 X10'3 (140-440); RED BLOOD COUNT 4.22 X10'6 (4.20-5.60); RED CELL DISTRIBUTION WIDTH 15.7 % (11.5-14.5); WHITE BLOOD COUNT 10.1 X10'3 (4.5-11.0)
[2019-10-22 07:46] LABS: ALANINE AMINOTRANSFERASE 38 U/L (12-78); ALBUMIN 2.7 G/DL (3.4-5.0); ALBUMIN/GLOBULIN RATIO 0.7 (1.1-1.5); ALKALINE PHOSPHATASE 87 IU/L (46-116); ANION GAP 12 (8-16); ASPARTATE AMINO TRANSFERASE 27 U/L (10-37); BILIRUBIN,TOTAL 0.7 MG/DL (0.1-1.0); BLOOD UREA NITROGEN 7 MG/DL (7-18); BUN/CREATININE RATIO 7.7 (6.6-38.0); CALCIUM 8.2 MG/DL (8.5-10.1); CHLORIDE 104 MMOL/L (99-107); CREATININE 0.91 MG/DL (0.40-0.90); GLUCOSE 83 MG/DL (70-104); POTASSIUM 3.6 MMOL/L (3.5-5.1); SODIUM 139 MMOL/L (135-145); TOTAL CARBON DIOXIDE 23.4 MMOL/L (24-32); TOTAL PROTEIN 6.7 G/DL (6.4-8.2); eGFR 74 ML/MIN
[2019-10-22] MEDS: CefTRIAXone/D5W-Rocephin 1gm 50 ML IV SCH (07:50)
[2019-10-22] MEDS: heparin, porcine 5000 units/ml vial SQ SCH ×2 (07:54→19:48)
[2019-10-22] MEDS: HYDROcodone/acetaminophen 5mg/325mg tablet PO PRN ×2 (08:22→19:48)
[2019-10-22] MEDS ORDERED: pneumococcal 23-VAL P-sac vacc 25 mcg/0.5ml vial IMVAC ONE (10:00)
[2019-10-22] MEDS ORDERED: FLU VACC QS2019-20 36MOS UP/PF 60 MCG/0.5 ML SYRINGE IMVAC ONE (10:00)
[2019-10-22 11:00] VITALS: BP 168/84
--- NOTE | 2019-10-22 13:18 | NUR ---
Student Medication Administration: For this medication-pass time frame, all medication were reviewed, dispensed, administered and documented per hospital policy by Rich Student Nurse.
--- NOTE | 2019-10-22 13:18 | NUR ---
Student Medication Administration: For this medication-pass time frame, all medication were reviewed, dispensed, administered and documented per hospital policy by Lima Student Nurse.
--- NOTE | 2019-10-22 18:30 | NUR ---
Patient in room [facility]. I have received report from Garrison LOZA and had the opportunity to ask questions and assume patient care.
--- NOTE | 2019-10-22 18:30 | NUR ---
Problems reprioritized. Patient report given, questions answered & plan of care reviewed with Marcelle LOZA.
[2019-10-22] MEDS: lactobacillus rhamnosus 10,000 MMU CELLS/CAPSULE PO SCH (19:48)
[2019-10-22 20:00] VITALS: BP 94/50
[2019-10-22] MEDS: nicotine 14mg patch - 24hr TD SCH (21:41)
[2019-10-22 23:54] VITALS: BP 135/76
[2019-10-23] MEDS: normal saline 1000ml 1,000 ML IV SCH ×2 (02:38→16:29)
[2019-10-23] MEDS: acetaminophen 325mg tablet PO PRN (03:42)
[2019-10-23 05:10] LABS: BASOPHILS % (AUTO) 0.3 % (0-1); EOSINOPHILS % (AUTO) 0.6 % (0-6); HEMATOCRIT 34.9 % (35.0-45.0); HEMOGLOBIN 11.4 g/dl (12.0-16.0); LYMPHOCYTES % (AUTO) 13.6 % (21-51); MEAN CORPUSCULAR HEMOGLOBIN 27.6 PG (27.0-31.0); MEAN CORPUSCULAR HGB CONC 32.6 g/dL (33.0-36.5); MEAN CORPUSCULAR VOLUME 84.7 FL (78-98); MEAN PLATELET VOLUME 8.1 FL (7.4-10.4); MONOCYTES % (AUTO) 12.7 % (2-12); NEUTROPHILS # (AUTO) 5.5 X10'3 (1.8-7.7); NEUTROPHILS % (AUTO) 72.8 % (42-75); PLATELET COUNT 203 X10'3 (140-440); RED BLOOD COUNT 4.13 X10'6 (4.20-5.60); RED CELL DISTRIBUTION WIDTH 15.7 % (11.5-14.5); WHITE BLOOD COUNT 7.6 X10'3 (4.5-11.0)
[2019-10-23 05:17] LABS: ALANINE AMINOTRANSFERASE 59 U/L (12-78); ALBUMIN 2.6 G/DL (3.4-5.0); ALBUMIN/GLOBULIN RATIO 0.6 (1.1-1.5); ALKALINE PHOSPHATASE 95 IU/L (46-116); ANION GAP 11 (8-16); ASPARTATE AMINO TRANSFERASE 46 U/L (10-37); BILIRUBIN,TOTAL 0.4 MG/DL (0.1-1.0); BLOOD UREA NITROGEN 7 MG/DL (7-18); BUN/CREATININE RATIO 8.2 (6.6-38.0); CALCIUM 8.5 MG/DL (8.5-10.1); CHLORIDE 106 MMOL/L (99-107); CREATININE 0.85 MG/DL (0.40-0.90); GLUCOSE 95 MG/DL (70-104); POTASSIUM 3.6 MMOL/L (3.5-5.1); SODIUM 143 MMOL/L (135-145); TOTAL PROTEIN 6.7 G/DL (6.4-8.2); eGFR 80 ML/MIN
--- NOTE | 2019-10-23 06:41 | NUR ---
Problems reprioritized. Patient report given, questions answered & plan of care reviewed with Yoselin LOZA.
--- NOTE | 2019-10-23 06:42 | NUR ---
Patient in room [facility]. I have received report from Marcelle LOZA and had the opportunity to ask questions and assume patient care.
[2019-10-23] MEDS: CefTRIAXone/D5W-Rocephin 1gm 50 ML IV SCH (07:56)
[2019-10-23] MEDS: lactobacillus rhamnosus 10,000 MMU CELLS/CAPSULE PO SCH ×2 (07:59→20:00)
[2019-10-23] MEDS: heparin, porcine 5000 units/ml vial SQ SCH ×2 (08:00→20:00)
[2019-10-23] MEDS: nicotine 14mg patch - 24hr TD SCH (08:01)
[2019-10-23 08:25] VITALS: BP 128/73
[2019-10-23 11:00] VITALS: BP 139/87
--- NOTE | 2019-10-23 13:17 | NUR ---
In contact with DENIA Wyatt about patient
--- NOTE | 2019-10-23 15:02 | NUR ---
Patient told me that her IV site in her right arm is sore to the touch. It did not appear red, there is no leakage out of the IV and normal saline is running at 100 ml/hr. Nurse informed of patient complaint.
--- NOTE | 2019-10-23 16:11 | NUR ---
Student documentation: I have reviewed all interventions, assessments performed and documented by Debra MOSQUEDA
--- NOTE | 2019-10-23 16:19 | NUR ---
Patient requesting to leave the hospital AMA. Dr Lawson notify via page x3. called back, states he cant D/C pt without blood culture final report, but it was ok if pt wanted to sign the form and leave AMA . After talking to pt and taking her for a walk around the facility pt agreed to stay until tomorrow.
[2019-10-23 18:00] VITALS: BP 145/70
--- NOTE | 2019-10-23 18:25 | NUR ---
Patient in room [facility]. I have received report from DENIA Wyatt and had the opportunity to ask questions and assume patient care. Addendum: 10/23/19 at 1825 by Debra Zamora RN Amended: Links added.
--- NOTE | 2019-10-23 18:34 | NUR ---
Problems reprioritized. Patient report given, questions answered & plan of care reviewed with Trina Ward RN.
[2019-10-23] MEDS: HYDROcodone/acetaminophen 5mg/325mg tablet PO PRN (20:01)
[2019-10-24 00:14] VITALS: BP 139/72
[2019-10-24] MEDS: normal saline 1000ml 1,000 ML IV SCH ×2 (03:12→08:38)
[2019-10-24 05:16] LABS: BASOPHILS # (AUTO) 0.1 X10'3 (0-0.2); BASOPHILS % (AUTO) 0.6 % (0-1); EOSINOPHILS # (AUTO) 0.2 X10'3 (0-0.9); EOSINOPHILS % (AUTO) 1.8 % (0-6); HEMATOCRIT 38.1 % (35.0-45.0); HEMOGLOBIN 12.3 g/dl (12.0-16.0); LYMPHOCYTES # (AUTO) 1.5 X10'3 (1.1-4.8); LYMPHOCYTES % (AUTO) 17.5 % (21-51); MEAN CORPUSCULAR HEMOGLOBIN 27.7 PG (27.0-31.0); MEAN CORPUSCULAR HGB CONC 32.4 g/dL (33.0-36.5); MEAN CORPUSCULAR VOLUME 85.4 FL (78-98); MEAN PLATELET VOLUME 8.7 FL (7.4-10.4); MONOCYTES # (AUTO) 0.8 X10'3 (0-0.9); MONOCYTES % (AUTO) 8.9 % (2-12); NEUTROPHILS # (AUTO) 6.2 X10'3 (1.8-7.7); NEUTROPHILS % (AUTO) 71.2 % (42-75); PLATELET COUNT 221 X10'3 (140-440); RED BLOOD COUNT 4.46 X10'6 (4.20-5.60); RED CELL DISTRIBUTION WIDTH 16.1 % (11.5-14.5); WHITE BLOOD COUNT 8.7 X10'3 (4.5-11.0)
--- NOTE | 2019-10-24 06:28 | NUR ---
Problems reprioritized. Patient report given, questions answered & plan of care reviewed with DENIA Wyatt. Addendum: 10/24/19 at 0629 by Debra Zamora RN Amended: Links added.
--- NOTE | 2019-10-24 06:34 | NUR ---
Patient in room [facility]. I have received report from Trina Ward RN and had the opportunity to ask questions and assume patient care.
[2019-10-24 07:00] VITALS: BP 116/53
[2019-10-24] MEDS: CefTRIAXone/D5W-Rocephin 1gm 50 ML IV SCH (07:47)
[2019-10-24] MEDS: lactobacillus rhamnosus 10,000 MMU CELLS/CAPSULE PO SCH (07:48)
[2019-10-24] MEDS: nicotine 14mg patch - 24hr TD SCH (07:48)
[2019-10-24 07:58] LABS: ANION GAP 9 (8-16); CHLORIDE 107 MMOL/L (99-107); POTASSIUM 3.7 MMOL/L (3.5-5.1); SODIUM 144 MMOL/L (135-145); TOTAL CARBON DIOXIDE 27.6 MMOL/L (24-32)
[2019-10-24] MEDS: heparin, porcine 5000 units/ml vial SQ SCH (08:00)
[2019-10-24 08:01] LABS: ALANINE AMINOTRANSFERASE 66 U/L (12-78); ALBUMIN 2.7 G/DL (3.4-5.0); ALBUMIN/GLOBULIN RATIO 0.6 (1.1-1.5); ALKALINE PHOSPHATASE 94 IU/L (46-116); ASPARTATE AMINO TRANSFERASE 32 U/L (10-37); BILIRUBIN,TOTAL 0.3 MG/DL (0.1-1.0); BLOOD UREA NITROGEN 7 MG/DL (7-18); BUN/CREATININE RATIO 8.5 (6.6-38.0); CALCIUM 8.8 MG/DL (8.5-10.1); CREATININE 0.82 MG/DL (0.40-0.90); GLUCOSE 90 MG/DL (70-104); TOTAL PROTEIN 6.9 G/DL (6.4-8.2); eGFR 84 ML/MIN
[2019-10-24 10:43] VITALS: BP 149/89
[2019-10-24] MEDS ORDERED: LEVO750T21 PO (11:02)
--- NOTE | 2019-10-24 12:23 | NUR ---
Patient D/C'd home by Dr Lawson. Patient is stable conditions. IV removed, discharge and medication instructions given to patient. [facility] Left the hospital via private vehicle accompanied by friend.
== END 2019-10-24 12:00 | disposition home or self-care (01) | DRG 720 ==
LOC: ER 15:31 → ED HOLD 20:38 → SUR 3N 21:14
PROVIDERS: ADMIT Internal Medicine; ATTEND Family Medicine
PROC: 3E02340 Introduction of Influenza Vaccine into Muscle, Percutaneous Approach (ICD-10-PCS; principal; 2019-10-22)
PROC: 3E0234Z Introduction of Serum, Toxoid and Vaccine into Muscle, Percutaneous Approach (ICD-10-PCS; 2019-10-22)
DX: A41.9 Sepsis, unspecified organism (principal); N13.6 Pyonephrosis; B96.20 Unspecified Escherichia coli [E. coli] as the cause of diseases classified elsewhere; F17.210 Nicotine dependence, cigarettes, uncomplicated; Z87.442 Personal history of urinary calculi; Z90.49 Acquired absence of other specified parts of digestive tract; Z23 Encounter for immunization; Z88.8 Allergy status to other drugs, medicaments and biological substances
CPT/HCPCS: 36415; 71045; 74176; 80053; 81001; 81025; 83605; 83690; 84145; 85025; 86703; 87040; 87077; 87081; 87088; 87186; 87502; 87503; 90732; 93005; 94760; 96365; 99285; G0378; J0696; J1644; J7030; Q2037

== ENCOUNTER 2019-12-02 16:33 | Emergency (ER) | payer MEDICAID ==
[~2019-12-02 16:33] MED LIST changes: -FLUT16SP10 BOTHNARES; -HYDR-4383 PO; +KEN0.1O TP; -MULT-933 PO; -NYST30CR2 TP; +VARE0.5T PO
[2019-12-03] MEDS ORDERED: ACYC400T PO (11:22)
[2019-12-03] MEDS ORDERED: DOXY100C43 PO (11:22)
[2019-12-03] MEDS ORDERED: CEPH500C2 PO (11:36)
[2019-12-03] MEDS ORDERED: LIDO30CR23 TOP (12:19)
== END 2019-12-02 18:52 | disposition left against medical advice (07) ==
LOC: ER 16:34
DX: Z00.8 Encounter for other general examination (principal); Z53.21 Procedure and treatment not carried out due to patient leaving prior to being seen by health care provider

== ENCOUNTER 2019-12-03 09:35 | Emergency (ER) | payer MEDICAID ==
[~2019-12-03] VITALS: Ht 175.3 cm; Wt 151.4 kg
[2019-12-03 10:02] LABS: CLARITY,URINE TURBID (Clear); COLOR,URINE YELLOW (Yellow); GLUCOSE, URINE NEGATIVE (Neg); KETONES,URINE NEGATIVE (Neg); LEUKOCYTE ESTERASE ,URINE LARGE (Neg); NITRITES, URINE POSITIVE (Neg); OCCULT BLOOD,URINE LARGE (Neg); PROTEIN,URINE 30 mg/dl (Neg)
[2019-12-03 10:03] LABS: URINE HCG NEGATIVE (NEG)
[2019-12-03 10:04] LABS: UA COLLECTION TYPE CLN CATCH MIDSTREAM
[2019-12-03 10:07] LABS: BACTERIA,URINE 4+ /HPF (Neg); WBC,URINE TNTC /HPF (0-4)
[2019-12-03 10:10] LABS: SQUAMOUS EPITHELIAL CELL,UR MANY /LPF (FEW)
--- NOTE | 2019-12-03 10:14 | NUR ---
UA REJECTED FOR CULTURE
[2019-12-03] MEDS ORDERED: LORazepam 1 MG tablet PO ONE (10:15)
[2019-12-03] MEDS ORDERED: HYDROcodone/acetaminophen 5mg/325mg tablet PO ONE (10:15)
[2019-12-03 10:35] VITALS: BP 120/69
[2019-12-03] MEDS ORDERED: azithromycin 250mg tablet PO ONE (11:15)
[2019-12-03] MEDS ORDERED: CefTRIAXone 250MG IM Kit w/LIDOcaine IM ONE (11:15)
[2019-12-03] MEDS ORDERED: penicillin G benzathine 1.2 million unit/2ml syringe IM ONE ×2 (11:15)
[2019-12-03] MEDS ORDERED: DOXY100C43 PO (11:22)
[2019-12-03] MEDS ORDERED: ACYC400T PO (11:22)
[2019-12-03] MEDS ORDERED: CEPH500C2 PO (11:36)
[2019-12-03] MEDS ORDERED: LIDO30CR23 TOP (12:19)
[2019-12-04 07:16] LABS: RPR Non Reactive (Non Reactive)
== END 2019-12-03 12:51 | disposition home or self-care (01) ==
LOC: ER 09:36
DX: N73.9 Female pelvic inflammatory disease, unspecified (principal); N39.0 Urinary tract infection, site not specified; A60.9 Anogenital herpesviral infection, unspecified; Z87.442 Personal history of urinary calculi; Z56.0 Unemployment, unspecified; Z90.49 Acquired absence of other specified parts of digestive tract; Z88.6 Allergy status to analgesic agent; Z79.899 Other long term (current) drug therapy
CPT/HCPCS: 36415; 81001; 81025; 86592; 87210; 87252; 96372; 99284; J0561; J0696; Q0112

== ENCOUNTER 2020-11-19 05:09 | Emergency (ER) | payer MEDICAID ==
[~2020-11-19] VITALS: Ht 175.3 cm; Wt 131.8 kg
[~2020-11-19 05:09] MED LIST changes: +LIDO30CR23 TOP
[2020-11-19 05:14] VITALS: BP 155/94
== END 2020-11-19 06:11 | disposition home or self-care (01) ==
LOC: ER 05:10
DX: O20.0 Threatened abortion (principal); Z3A.01 Less than 8 weeks gestation of pregnancy; Z87.442 Personal history of urinary calculi; Z88.8 Allergy status to other drugs, medicaments and biological substances; Z79.899 Other long term (current) drug therapy; Z56.0 Unemployment, unspecified
CPT/HCPCS: 36415; 84702; 99283

== ENCOUNTER 2020-12-20 15:11 | Emergency (ER) | payer MEDICAID ==
[~2020-12-20] VITALS: Ht 175.3 cm; Wt 130.4 kg
[2020-12-20] MEDS ORDERED: BENZ-38 PO (15:38)
[2020-12-20] MEDS ORDERED: ALBU6.7H9 INH (15:38)
[2020-12-20] MEDS ORDERED: PRED10TA23 PO (15:38)
== END 2020-12-20 16:17 | disposition home or self-care (01) ==
LOC: ER 15:11
DX: J06.9 Acute upper respiratory infection, unspecified (principal); Z20.828 Contact with and (suspected) exposure to other viral communicable diseases; J45.909 Unspecified asthma, uncomplicated; F17.200 Nicotine dependence, unspecified, uncomplicated; Z88.6 Allergy status to analgesic agent; Z79.899 Other long term (current) drug therapy; Z87.440 Personal history of urinary (tract) infections; Z87.442 Personal history of urinary calculi; Z56.0 Unemployment, unspecified; Z90.49 Acquired absence of other specified parts of digestive tract
CPT/HCPCS: 71045; 99283

== ENCOUNTER 2021-01-11 09:01 | Emergency (ER) | payer MEDICAID ==
[~2021-01-11] VITALS: Ht 175.3 cm; Wt 130.4 kg
[~2021-01-11 09:01] MED LIST changes: +ALBU6.7H9 INH; +BENZ-38 PO; +PRED10TA23 PO
[2021-01-11] MEDS ORDERED: dexamethasone sod phosphate 10mg/ml inj PO STA (09:14)
[2021-01-11] MEDS ORDERED: iohexol 300mg/ml 100ml inj. ONE (09:30)
[2021-01-11 09:59] LABS: BASOPHILS # (AUTO) 0.1 X10'3 (0-0.2); BASOPHILS % (AUTO) 0.9 % (0-1); EOSINOPHILS # (AUTO) 0.3 X10'3 (0-0.9); EOSINOPHILS % (AUTO) 3.1 % (0-6); HEMOGLOBIN 11.3 g/dl (12.0-16.0); LYMPHOCYTES # (AUTO) 1.6 X10'3 (1.1-4.8); LYMPHOCYTES % (AUTO) 18.5 % (21-51); MEAN CORPUSCULAR HEMOGLOBIN 25.1 PG (27.0-31.0); MEAN CORPUSCULAR HGB CONC 32.4 g/dL (33.0-36.5); MEAN CORPUSCULAR VOLUME 77.6 FL (78-98); MEAN PLATELET VOLUME 6.7 FL (7.4-10.4); MONOCYTES # (AUTO) 0.5 X10'3 (0-0.9); MONOCYTES % (AUTO) 6.4 % (2-12); NEUTROPHILS % (AUTO) 71.1 % (42-75); PLATELET COUNT 401 X10'3 (140-440); RED BLOOD COUNT 4.51 X10'6 (4.20-5.60); RED CELL DISTRIBUTION WIDTH 15.6 % (11.5-14.5); WHITE BLOOD COUNT 8.4 X10'3 (4.5-11.0)
[2021-01-11 10:13] LABS: URINE HCG NEGATIVE (NEG)
[2021-01-11 10:25] LABS: ASPARTATE AMINO TRANSFERASE 10 U/L (10-37); BLOOD UREA NITROGEN 11 MG/DL (7-18); BUN/CREATININE RATIO 13.4 (6.6-38.0); CHLORIDE 105 MMOL/L (99-107); CREATININE 0.82 MG/DL (0.40-0.90); GLUCOSE 94 MG/DL (70-104); POTASSIUM 3.7 MMOL/L (3.5-5.1); SODIUM 140 MMOL/L (135-145); eGFR 83 ML/MIN
[2021-01-11 10:27] LABS: ALANINE AMINOTRANSFERASE 18 U/L (12-78); ALBUMIN 3.3 G/DL (3.4-5.0); ALBUMIN/GLOBULIN RATIO 0.7 (1.1-1.5); ALKALINE PHOSPHATASE 81 IU/L (46-116); ANION GAP 9 (8-16); BILIRUBIN,TOTAL 0.2 MG/DL (0.1-1.0); CALCIUM 9.1 MG/DL (8.5-10.1); TOTAL CARBON DIOXIDE 26.2 MMOL/L (24-32)
--- NOTE | 2021-01-11 11:01 | NUR ---
PT TO CT
[2021-01-11] MEDS ORDERED: CefTRIAXone/D5W-Rocephin 1gm 50 ML IV ONE (12:20)
[2021-01-11] MEDS ORDERED: PENI500T2 PO ×2 (12:24→12:31)
[2021-01-11 13:05] VITALS: BP 110/67
== END 2021-01-11 13:07 | disposition home or self-care (01) ==
LOC: ER 09:02
DX: J02.9 Acute pharyngitis, unspecified (principal); Z88.6 Allergy status to analgesic agent; Z79.899 Other long term (current) drug therapy
CPT/HCPCS: 36415; 70491; 80053; 81025; 85025; 87081; 87880; 96365; 99285; J0696; J1100; Q9967

== ENCOUNTER 2022-06-27 11:26 | Emergency (ER) | payer MEDICAID ==
[~2022-06-27] VITALS: Ht 175.3 cm; Wt 159.1 kg
[~2022-06-27 11:26] MED LIST changes: -BENZ-38 PO; +LIDO30CR TOP; -LIDO30CR23 TOP; -PRED10TA23 PO
[2022-06-27 11:36] VITALS: BP 151/95
== END 2022-06-27 12:38 | disposition home or self-care (01) ==
LOC: ER 11:26
DX: L53.8 Other specified erythematous conditions (principal); R60.0 Localized edema; J45.909 Unspecified asthma, uncomplicated; N20.0 Calculus of kidney; Z90.49 Acquired absence of other specified parts of digestive tract; Z98.890 Other specified postprocedural states; Z56.0 Unemployment, unspecified; Z88.6 Allergy status to analgesic agent; Z79.899 Other long term (current) drug therapy
CPT/HCPCS: 73630; 99283